=== PATIENT | male | born 1980 | race Caucasian/White ===

== ENCOUNTER 2018-04-13 19:56 | Emergency (ER) | payer OTHER ==
[2018-04-13 20:56] VITALS: BP 142/91
== END 2018-04-13 20:56 | disposition home or self-care (01) ==
LOC: ED 19:56
DX: S60.412A Abrasion of right middle finger, initial encounter (principal); J45.909 Unspecified asthma, uncomplicated; W25.XXXA Contact with sharp glass, initial encounter; Y93.89 Activity, other specified; Y92.89 Other specified places as the place of occurrence of the external cause; Y99.8 Other external cause status
CPT/HCPCS: 90715

== ENCOUNTER 2018-10-31 15:46 | Emergency (ER) | payer OTHER ==
[~2018-10-31] VITALS: Ht 175.3 cm; Wt 99.8 kg
[2018-10-31 15:57] VITALS: Ht 175.3 cm; Wt 99.8 kg
[2018-10-31 17:33] VITALS: BP 134/89
== END 2018-10-31 17:33 | disposition home or self-care (01) ==
LOC: ED 15:46
DX: M79.644 Pain in right finger(s) (principal); J45.909 Unspecified asthma, uncomplicated
CPT/HCPCS: Q0092

== ENCOUNTER 2019-12-26 19:12 | Emergency (ER) | payer OTHER ==
[~2019-12-26] VITALS: Ht 177.8 cm; Wt 107.5 kg
[2019-12-26 19:23] VITALS: Ht 177.8 cm; Wt 107.5 kg
[2019-12-26 22:36] VITALS: BP 140/86
== END 2019-12-26 22:36 | disposition home or self-care (01) ==
LOC: ED 19:12
DX: S91.331A Puncture wound without foreign body, right foot, initial encounter (principal); J45.909 Unspecified asthma, uncomplicated; W45.8XXA Other foreign body or object entering through skin, initial encounter; Y92.89 Other specified places as the place of occurrence of the external cause; Y93.89 Activity, other specified; Y99.8 Other external cause status
CPT/HCPCS: J2001; Q0092